=== PATIENT | female | born 1945 | race Caucasian/White ===

== ENCOUNTER 2017-04-08 19:48 | Inpatient (IN) | payer MEDICARE ==
[2017-04-08 21:00] LABS: #Basophils 0.1 thou/uL (0.0-0.2); #Eosinphils 0.2 thou/uL (0.0-0.7); #Lymphocytes 2.3 thou/uL (1.20-3.40); #Monocytes 1.7 thou/uL (0.11-0.59); #Neutrophils 13.5 thou/uL (1.40-6.50); %Basophils 0.3 % (0.0-1.0); %Eosinophils 1.3 % (0.0-10.0); %Lymphocytes 12.7 % (21.0-51.0); %Monocytes 9.5 % (0.0-10.0); Hematocrit 42.2 % (36.0-47.0); Mean Platelet Volume 9.5 fL (7.4-10.4); Red Blood Cell (RBC) Count 4.55 mill/uL (4.20-5.40); White Blood Cell (WBC) Count 17.7 thou/uL (4.8-10.8)
[2017-04-08 21:01] LABS: Bilirubin Negative (Negative); Blood, Urine Small (Negative); Glucose, Urine (Dipstick) Negative (Negative); Ketone, Urine Negative (Negative); Nitrite Positive (Negative); Protein, Urine (Dipstick) 30 mg/dL (Neg-Trace)
[2017-04-08 21:03] LABS: Bacteria/HPF 4+ HPF (None Seen); Hyaline Casts/LPF 0-3 HYALINE CAST LPF (0-3 Hyaline); Squamous Epithelial None Seen HPF (0-3)
[2017-04-08 21:06] LABS: Lactic Acid - Sepsis 2.9 mmol/L (0.5-2.2)
[2017-04-08 21:20] LABS: ALT (SGPT) 51 U/L (8-55); AST (SGOT) 40 U/L (5-34); Alkaline Phosphatase 212 U/L (40-150); Anion Gap 18 mmol/L (10-20); BUN (Urea Nitrogen) 31 mg/dL (9.8-20.1); Bilirubin, Total 0.5 mg/dL (0.2-1.2); Calc. Creatinine Clearance 0 mL/min (70-130); Calcium 9.3 mg/dL (7.8-10.44); Carbon Dioxide 23 mmol/L (23-31); Chloride 99 mmol/L (98-107); Estimated GFR-MDRD 54; Globulin 4.7 g/dL (2.4-3.5); Protein, Total 7.8 g/dL (6.0-8.3)
--- NOTE | 2017-04-08 21:27 | RAD ---
PORTABLE CHEST: Date: 04-08-17 Provided Clinical History: Altered mental status. FINDINGS: Comparison is made with the study dated 03-03-15. Cardiomediastinal silhouette is unchanged in appearance. No focal consolidation, pleural fluid or pne umothorax apparent. IMPRESSION: No evidence for an acute cardiopulmonary process. POS: [facility]
[2017-04-08 21:29] LABS: Troponin I Less than 0.010 ng/mL (< 0.028)
[2017-04-08] MEDS ORDERED: Piperacillin/Tazobactam 4.5 GM in Sodium Chloride 0.9% 100 ML IVPB SCH (21:45)
[2017-04-08] MEDS ORDERED: Azithromycin 500 MG in Sodium Chloride 0.9% 250 ML 250 ML IVPB SCH ×2 (21:45→23:59)
[2017-04-08 23:22] VITALS: BMI 39.3
[2017-04-08] MEDS ORDERED: Ondansetron ODT 4 MG TAB SL PRN (23:32)
[2017-04-08] MEDS ORDERED: Ondansetron HCl/PF 4 MG/2 ML Vial IVP PRN (23:32)
[2017-04-08] MEDS ORDERED: Acetaminophen 325 MG TAB PO PRN ×2 (23:32→23:50)
[2017-04-08] MEDS ORDERED: Dextrose 5% in Water 1,000 ML IV PRN (23:50)
[2017-04-08] MEDS ORDERED: Dextrose 50% Abboject 50 ML SYRINGE SLOW IVP PRN (23:50)
[2017-04-09] MEDS: Sodium Chloride 0.9% 1,000 ML IV SCH ×4 (00:12→17:39)
[2017-04-09] MEDS: cefTRIAXone\\ROCEPHIN 2 GM in Sodium Chloride 0.9% 100 ML IVPB SCH (00:12)
[2017-04-09 00:15] LABS: Amphetamine Detected (NotDetected); Methadone Not Detected (NotDetected); Methamphetamine Detected (NotDetected)
--- NOTE | 2017-04-09 04:44 | HP-2 ---
DATE AND TIME OF SERVICE: 04/08/2017 at 2300 hours. CODE STATUS: FULL CODE. PRIMARY CARE PHYSICIAN: Zak Segovia M.D. ATTENDING: Miguel Wheatley M.D. RESIDENT: Ricky Pierson M.D. HISTORIAN: Patient. CHIEF COMPLAINT: Hyperglycemia. HISTORY OF PRESENT ILLNESS: Lorie Montalvo is a 71-year-old female with past medical history of type 2 diabetes and peripheral artery disease who presents after having episode of hyperglycemia. The da y before presenting to the ER, her blood sugar at home was 600 yesterday and the patient states that she took 4 tabs of her glipizide, unknown dose. The patient's daughter convinced the patient to come to the ER because of the blood sugars. The patient's daughter told the nurse that the patient seeme d confused and different than normal. The patient normally takes a regular insulin, but has not take n it in over a month, because she ran out of medication. The patient admits to not taking very good care of herself. States that she has not been taking insulin because she is out and that she has bee n eating and really unhealthy. The patient's only symptoms have been dysuria and polyuria. She was asymptomatic during the hyperglycemic episode. The patient denies any other symptoms with the except ion of seasonal allergy symptoms. PAST MEDICAL HISTORY: 1. Type 2 diabetes. 2. Peripheral artery disease. PAST SURGICAL HISTORY: 1. section x3. 2. Hysterectomy. 3. Appendectomy. ALLERGIES: No known drug allergies. MEDICATIONS: Unable to confirm the patient's home medication list, patient's last admission was in 2 015. The patient is not a very good great historian and was unable to tell me what her medications w ere. We will attempt to get medication reconciliation. FAMILY HISTORY: None. SOCIAL HISTORY: The patient states she smokes 1/3 of a cigarette per day. Does not drink alcohol an d admits to using friend's Adderall recently. She lives at home. She states that she used to abuse all kinds of drugs including IV drugs. She states that the last time she has used any of these drugs was in 2010. REVIEW OF SYSTEMS: General, eyes, ENT, respiratory, CV, GI, , skin, musculoskeletal, neuro, and ps ych all reviewed and were negative unless otherwise stated in the HPI, only positives were dysuria, p olyuria, nasal congestion, and rhinorrhea. PHYSICAL EXAMINATION: VITAL SIGNS: Blood pressure 121/64, pulse 101, respiratory rate 24, T-max 99.6, pulse ox 96% on room air. Current weight 115 kilograms. GENERAL: The patient is alert and oriented x3 in no acute distress, morbidly obese, and appropriatel y interactive. EYES: Pupils equal, round, reactive to light and accommodation. Extraocular muscles intact. Conjun ctiva within normal limits. ENT: Tympanic membranes pearly gonzalez without erythema or bulging. Nasal mucosa and oropharynx within normal limits. NECK: Supple, without lymphadenopathy or thyromegaly. CARDIOVASCULAR: Regular rate and rhythm, very soft 2/6 systolic murmur heard over left parasternal b order. No gallops. RESPIRATORY: Normal effort, no retractions. LUNGS: Clear to auscultation bilaterally. SKIN: Warm and dry without cyanosis or lesions. ABDOMEN: Soft, nontender. Bowel sounds x4. No masses or distention. EXTREMITIES: No clubbing, cyanosis or edema. MUSCULOSKELETAL: Structure and tone within normal limits. Full range of motion. NEUROLOGIC: No focal deficits. Sensation within normal limits. PSYCHIATRIC: Normal mood and affect. However, patient was tangential throughout the conversation. LABORATORY DATA: White blood cell count 17.7, 76% neutrophils, hemoglobin 13.6, hematocrit 42.2, victorino telets 232. Sodium 135, potassium 4.6, chloride 99, carbon dioxide 23, BUN 31, creatinine 1.02, gluc ose 125, calcium 9.3, total protein 7.8, albumin 3.1, total bilirubin 0.5, AST 40, ALT 51, alkaline p hosphatase 212, lactic acid 2.8, CK-MB 22. Troponin I less than 0.01. UA significant for small bloo d, 30 protein, large leukocyte esterase, positive nitrite, 7 to 10 red blood cell, greater than 50 wh ite blood cell, 4+ bacteria. Chest x-ray showed no acute cardiopulmonary process. ASSESSMENT AND PLAN: A 71-year-old female with positive urinalysis, tachycardia, elevated lactate an d elevated white blood cell count. 1. Urosepsis. Admit to medical. Blood and urine cultures pending. The patient received azithromyc in and Zosyn in the ER. We will start Rocephin and recheck a lactate. The patient received 1 liter of normal saline bolus in the ER. We will start maintenance IV fluids normal saline at 155 mL an sarah r. 2. Type 2 diabetes mellitus. The patient has been noncompliant with medications. We will restart p revious home dose of insulin and add sliding scale insulin. We will continue doing q.4 hour Accu-Roxane ks initially and then switched to Accu-Cheks a.c. and at bedtime. Once we had confirmed, the patient will not become hypoglycemic. 3. History of IV drug use. Soft systolic murmur heard at the left sternal border. Last admitted IV drug use was in 2010. We will check a UDS, likely not the cause of sepsis, but we will review recor ds for any echos in the past. We will consider testing for hepatitis C, hepatitis B, HIV, and syphil is. 4. Lactic acidosis. Lactate 2.9. We will recheck after the patient was received fluid boluses, lik tanesha secondary to #1. 5. Activity: Ad sofya. 6. Deep venous thrombosis prophylaxis, sequential compression devices. 7. Code status: FULL. DISPOSITION AND LENGTH OF HOSPITAL STAY: 2 days. Symptomatic medications will be provided. History and physical exam as well as management were discussed with Dr. Wheatley.
[2017-04-09 05:54] LABS: ALT (SGPT) 61 U/L (8-55); AST (SGOT) 57 U/L (5-34); Alkaline Phosphatase 199 U/L (40-150); Anion Gap 12 mmol/L (10-20); BUN (Urea Nitrogen) 28 mg/dL (9.8-20.1); Bilirubin, Total 0.3 mg/dL (0.2-1.2); Calc. Creatinine Clearance 74 mL/min (70-130); Calcium 8.8 mg/dL (7.8-10.44); Carbon Dioxide 24 mmol/L (23-31); Chloride 103 mmol/L (98-107); Estimated GFR-MDRD 49; Globulin 3.8 g/dL (2.4-3.5); Protein, Total 6.5 g/dL (6.0-8.3)
[2017-04-09 05:59] LABS: Hemoglobin A1c 9.8 % (4.0-6.0)
[2017-04-09 06:43] LABS: Band 1 % (5-11); Hematocrit 38.7 % (36.0-47.0); Mean Platelet Volume 10.2 fL (7.4-10.4); Neutrophil 70 % (42-75); Reactive Lymphocytes 1 % (0-10); Red Blood Cell (RBC) Count 4.12 mill/uL (4.20-5.40); White Blood Cell (WBC) Count 16.4 thou/uL (4.8-10.8)
[2017-04-09] MEDS: Insulin Regular 300 UNITS/3 ML VIAL SC PRN ×4 (06:45→20:48)
[2017-04-09] MEDS ORDERED: FLU VACC TS2017-18 (>65YR) 0.5 ML SYRINGE IM ONE (09:00)
--- NOTE | 2017-04-09 10:01 | PDOC.FM ---
- Subjective Subjective: Patient reports that she has symptomatically improved. She is still having some dysuria, increased frequency, and suprapubic pain. She denies any fevers or chills. - Objective MAR Reviewed: Yes Vital Signs & Weight: Vital Signs (12 hours) Temp Pulse Resp BP Pulse Ox 04/09/17 07:49 98.8 F 91 20 131/72 91 L 04/09/17 04:00 98.1 F 98 20 134/76 94 L 04/08/17 23:50 98.6 F 97 20 96 I&O: 04/08/17 04/09/17 04/10/17 06:59 06:59 06:59 Intake Total 1000 Balance 1000 Result Diagrams: 04/09/17 05:17 04/09/17 05:25 <Enid Che - Last Filed: 04/09/17 11:28> - Objective Vital Signs & Weight: Vital Signs (12 hours) Temp Pulse Resp BP Pulse Ox 04/09/17 11:38 92 L 04/09/17 11:29 100.0 F H 96 20 141/68 H 91 L 04/09/17 08:00 98.8 F 91 20 91 L 04/09/17 07:49 98.8 F 91 20 131/72 91 L 04/09/17 04:00 98.1 F 98 20 134/76 94 L I&O: 04/08/17 04/09/17 04/10/17 06:59 06:59 06:59 Intake Total 1000 240 Output Total 600 Balance 1000 -360 Result Diagrams: 04/09/17 05:17 04/09/17 05:25 <Misha Bergeron - Last Filed: 04/09/17 12:50> Phys Exam - Physical Examination Constitutional: NAD HEENT: moist MMs Respiratory: no wheezing, no rales, no rhonchi, clear to auscultation bilateral Cardiovascular: RRR 2/6 systolic murmur Gastrointestinal: soft, no distention, positive bowel sounds tender to palpation in suprapubic region, no rebound or guarding Musculoskeletal: pulses present, edema present (1+ pitting edema) Neurological: non-focal, moves all 4 limbs Psychiatric: normal affect, A&O x 3 Deviation from normal: bilateral stasis dermatitis <Enid Che - Last Filed: 04/09/17 11:28> Dx/Plan (1) Sepsis secondary to UTI Code(s): A41.9 - SEPSIS, UNSPECIFIED ORGANISM; N39.0 - URINARY TRACT INFECTION, SITE NOT SPECIFIED Status: Acute Plan: Patient had elevated WBC, tachycardia, tachypnea, and elevated lactic acid with signs of infection on urinalysis. UTI was likely 2/2 uncontrolled DMII -Rocephin day 2, will likely transition to PO abx tomorrow -NS @ 155 mL/hr -Urine Cx/sensitivities (2) Lactic acid blood increased Code(s): R79.89 - OTHER SPECIFIED ABNORMAL FINDINGS OF BLOOD CHEMISTRY Status : Resolved Plan: Lactic acid was 2.9 initially, has since downtrended to 1.5 s/p fluid resuscitation. (3) History of intravenous drug abuse Code(s): Z87.898 - PERSONAL HISTORY OF OTHER SPECIFIED CONDITIONS Status: Acute Plan: Patient has history of IV drug abuse. She reports no recent IV drug use. HIV, Hep B, syphilis negative -Will check Hep C Will drapery counselor (4) Methamphetamine abuse Code(s): F15.10 - OTHER STIMULANT ABUSE, UNCOMPLICATED Status: Acute Plan: Patient positive for Meth on UDS -Will drapery counselor and encourage cessation (5) PAD (peripheral artery disease) Code(s): I73.9 - PERIPHERAL VASCULAR DISEASE, UNSPECIFIED Status: Acute Plan: Do not know medication list currently. Daughter will bring today. Will continue home medications when she brings it. (6) Stasis dermatitis of both legs Code(s): I83.11 - VARICOSE VEINS OF RIGHT LOWER EXTREMITY WITH INFLAMMATION; I83.12 - VARICOSE VEINS OF LEFT LOWER EXTREMITY WITH INFLAMMATION Status: Acute Plan: Patient has stasis dermatitis with no open wounds. Will monitor. When daughter brings medication list will review. (7) Type 2 diabetes mellitus Status: Chronic QualifierTitle: Diabetes mellitus complication status: with skin complications Diabetes mellitus complication detail: with dermatitis Diabetes mellitus terminal gauger supervisor insulin use: without terminal gauger supervisor use Qualified Code( s): E11.620 - Type 2 diabetes mellitus with diabetic dermatitis Plan: Uncontrolled Type 2 DM, A1c 9.8% Do not have current medication list yet, will get from daughter today and will continue home medications -SSI -Accuchecks ACHS -Diabetic Diet -Counseling <Enid Che - Last Filed: 04/09/17 11:28> Attending Addendum - Attending Addendum I personally evaluated the patient and discussed the management with Dr. Che. I agree with the History, Examination, Assessment and Plan documented above with any addition or exceptions noted below. Patient reports improvement in symptoms today. She has elevated white count and evidence on UA for UTI. She met sepsis criteria on admission. She has had blood and urine cultures obtained, and has been adequately fluid resuscitated. Continue Rocephin and await culture results. She is methamphetamine positive on UDS with history of such and will need counselling. We will also be adjusting DM regimen to obtain better control of blood sugars to help prevent future infections and complications of that disease. <Misha Bergeron - Last Filed: 04/09/17 12:50>
[2017-04-09] MEDS ORDERED: Albuterol Sulfate 2.5 mg/3 ml Neb NEB PRN (17:32)
[2017-04-09] MEDS: Potassium Chloride 10 MEQ TAB PO SCH (19:57)
[2017-04-09] MEDS: Gabapentin 400 MG CAP PO SCH (19:57)
[2017-04-09] MEDS: Furosemide 40 MG TAB PO SCH (19:58)
[2017-04-09] MEDS ORDERED: Atorvastatin Calcium 40 MG TAB PO SCH (21:00)
[2017-04-10] MEDS: cefTRIAXone\\ROCEPHIN 2 GM in Sodium Chloride 0.9% 100 ML IVPB SCH (00:49)
[2017-04-10] MEDS: Sodium Chloride 0.9% 1,000 ML IV SCH ×3 (00:50→18:29)
[2017-04-10] MEDS ORDERED: Levothyroxine Sodium 88 MCG TAB PO SCH (06:00)
[2017-04-10] MEDS ORDERED: glipiZIDE 10 MG TAB PO SCH (07:30)
[2017-04-10 07:33] LABS: #Basophils 0.1 thou/uL (0.0-0.2); #Eosinphils 0.4 thou/uL (0.0-0.7); #Lymphocytes 1.7 thou/uL (1.20-3.40); #Monocytes 1.3 thou/uL (0.11-0.59); #Neutrophils 9.9 thou/uL (1.40-6.50); %Basophils 0.6 % (0.0-1.0); Hematocrit 37.8 % (36.0-47.0); Mean Platelet Volume 8.9 fL (7.4-10.4); Red Blood Cell (RBC) Count 3.97 mill/uL (4.20-5.40); White Blood Cell (WBC) Count 13.5 thou/uL (4.8-10.8)
[2017-04-10 07:53] LABS: Anion Gap 11 mmol/L (10-20); BUN (Urea Nitrogen) 18 mg/dL (9.8-20.1); Calc. Creatinine Clearance 88 mL/min (70-130); Calcium 8.6 mg/dL (7.8-10.44); Carbon Dioxide 29 mmol/L (23-31); Chloride 102 mmol/L (98-107); Estimated GFR-MDRD 60
[2017-04-10] MEDS: metFORMIN 500 MG TAB PO SCH ×2 (08:12→17:00)
[2017-04-10] MEDS: Furosemide 40 MG TAB PO SCH (08:12)
[2017-04-10] MEDS: Potassium Chloride 10 MEQ TAB PO SCH (08:13)
--- NOTE | 2017-04-10 08:26 | PDOC.FM ---
- Subjective Subjective: Patient doing a little better this AM. She is still having some suprapubic pain and some dysuria, but she reports that it has improved. She is having some constipation as well, but is wanting to try prune juice before she does any medications. Denies fever/chills - Objective MAR Reviewed: Yes Vital Signs & Weight: Vital Signs (12 hours) Temp Pulse Resp BP Pulse Ox 04/10/17 04:00 98.7 F 104 H 18 123/79 96 Weight Admit Weight 97.522 kg Weight 97.522 kg I&O: 04/09/17 04/10/17 04/11/17 06:59 06:59 06:59 Intake Total 1000 4285 Output Total 1600 Balance 1000 2685 Result Diagrams: 04/10/17 07:23 04/10/17 07:23 <Enid Che - Last Filed: 04/10/17 08:25> - Objective Vital Signs & Weight: Vital Signs (12 hours) Temp Pulse Resp BP Pulse Ox 04/10/17 08:00 98.6 F 96 20 125/76 98 04/10/17 04:00 98.7 F 104 H 18 123/79 96 Weight Admit Weight 97.522 kg Weight 97.522 kg I&O: 04/09/17 04/10/17 04/11/17 06:59 06:59 06:59 Intake Total 1000 4285 Output Total 1600 Balance 1000 2685 Result Diagrams: 04/10/17 07:23 04/10/17 07:23 <Misha Bergeron - Last Filed: 04/10/17 11:57> Phys Exam - Physical Examination Constitutional: NAD HEENT: moist MMs Respiratory: no wheezing, no rales, clear to auscultation bilateral Cardiovascular: RRR, no rub 3/6 systolic murmur Gastrointestinal: soft, no distention, positive bowel sounds tender to palpation in suprapubic region Musculoskeletal: pulses present, edema present (1+ pitting edema) Neurological: non-focal, moves all 4 limbs Psychiatric: normal affect, A&O x 3 Deviation from normal: bilateral chronic erythematous changes with no open wounds on legs <Enid Che - Last Filed: 04/10/17 08:25> Dx/Plan (1) Sepsis secondary to UTI Code(s): A41.9 - SEPSIS, UNSPECIFIED ORGANISM; N39.0 - URINARY TRACT INFECTION, SITE NOT SPECIFIED Status: Acute Plan: Patient had elevated WBC, tachycardia, tachypnea, and elevated lactic acid with signs of infection on urinalysis. UTI was likely 2/2 uncontrolled DMII - Urine cx grew E. coli resistant to Bactrim. -Rocephin day 3, will transition to PO cipro today as E. coli is sensitive to this -NS @ 155 mL/hr WBC count downtrending (2) Lactic acid blood increased Code(s): R79.89 - OTHER SPECIFIED ABNORMAL FINDINGS OF BLOOD CHEMISTRY Status : Resolved Plan: Lactic acid was 2.9 initially, has since downtrended to 1.5 s/p fluid resuscitation. (3) History of intravenous drug abuse Code(s): Z87.898 - PERSONAL HISTORY OF OTHER SPECIFIED CONDITIONS Status: Acute Plan: Patient has history of IV drug abuse. She reports no recent IV drug use. HIV, Hep B, Hep C, syphilis negative Will family life counselor (4) Methamphetamine abuse Code(s): F15.10 - OTHER STIMULANT ABUSE, UNCOMPLICATED Status: Acute Plan: Patient positive for Meth on UDS -Will family life counselor and encourage cessation (5) PAD (peripheral artery disease) Code(s): I73.9 - PERIPHERAL VASCULAR DISEASE, UNSPECIFIED Status: Acute Plan: Continue home meds (6) Stasis dermatitis of both legs Code(s): I83.11 - VARICOSE VEINS OF RIGHT LOWER EXTREMITY WITH INFLAMMATION; I83.12 - VARICOSE VEINS OF LEFT LOWER EXTREMITY WITH INFLAMMATION Status: Acute Plan: Patient has stasis dermatitis with no open wounds. Will monitor. Cont home meds (7) Type 2 diabetes mellitus Status: Chronic QualifierTitle: Diabetes mellitus complication status: with skin complications Diabetes mellitus complication detail: with dermatitis Diabetes mellitus half-way insulin use: without half-way use Qualified Code( s): E11.620 - Type 2 diabetes mellitus with diabetic dermatitis Plan: Uncontrolled Type 2 DM, A1c 9.8% Cont home meds -SSI -Accuchecks ACHS -Diabetic Diet -Counseling <Enid Che - Last Filed: 04/10/17 08:25> Attending Addendum - Attending Addendum I personally evaluated the patient and discussed the management with Dr. Che. I agree with the History, Examination, Assessment and Plan documented above with any addition or exceptions noted below. Patient reports improvement this morning. She has been afebrile and WBC has downtrended. Ucx growing E. coli with appropriate sensitivities. Patient with be changed to PO antibiotics today and discharged home. <Misha Bergeron - Last Filed: 04/10/17 11:57>
[2017-04-10] MEDS ORDERED: Aspirin 81 mg Enteric Coated Tablet PO SCH (09:00)
[2017-04-10 09:40] VITALS: BP 125/76; TEMP 98.6
[2017-04-10] MEDS ORDERED: Ciprofloxacin 500 MG TAB PO SCH (11:45)
[2017-04-10] MEDS: Insulin Regular 300 UNITS/3 ML VIAL SC PRN (12:30)
--- NOTE | 2017-04-11 13:39 | DIS-2 ---
DATE OF ADMISSION: 04/08/2017 DATE OF DISCHARGE: 04/10/2017 ADMITTING RESIDENT: Ricky Pierson MD DISCHARGE RESIDENT: Enid Che MD ADMITTING ATTENDING: Miguel Wheatley M.D. DISCHARGE ATTENDING: Misha Bergeron MD CONSULTATIONS: None. PROCEDURES: None. IMAGING: Chest x-ray showed no evidence of acute cardiopulmonary process. PRIMARY DIAGNOSES: 1. Sepsis secondary to urinary tract infection. 2. Acute complicated urinary tract infection secondary to Escherichia coli. 3. Methamphetamine abuse. 4. Leukocytosis. 5. Elevated lactic acid. SECONDARY DIAGNOSES: 1. Type 2 diabetes. 2. History of IV drug use. 3. Peripheral artery disease. 4. Stasis dermatitis. DISCHARGE MEDICATIONS: 1. Albuterol sulfate 2.5 mg nebulized q.2 h. p.r.n. shortness of breath or wheezing. 2. Aspirin 81 mg p.o. daily. 3. Atorvastatin 40 mg p.o. at bedtime. 4. Bacitracin ointment 30 grams to 1 application topical b.i.d. p.r.n. inflammation. 5. Blood sugar test strips 1 each before meals and at bedtime. 6. Symbicort 160/4.5 mg 2 puffs inhaled b.i.d. 7. Ciprofloxacin 500 mg p.o. b.i.d. for 7 days. 8. Advair Diskus 500/50 one inhaled b.i.d. 9. Lasix 40 mg p.o. b.i.d. 10. Gabapentin 400 mg p.o. at bedtime. 11. Glipizide 10 mg p.o. daily. 12. DuoNeb 3 mL nebulized q.6 h. 13. Levemir 35 units subcu q.p.m. 14. Synthroid 88 mcg p.o. daily. 15. Metformin 1000 mg p.o. b.i.d. with meals. 16. Multivitamin 1 tablet p.o. daily. 17. Potassium chloride 10 mEq p.o. b.i.d. DISCONTINUED MEDICATIONS: None. HISTORY OF PRESENT ILLNESS AND HOSPITAL COURSE: This is a 71-year-old female with past medical histo ry of diabetes type 2 and IV drug abuse who presented to the emergency department after checking her blood sugar and realizing it was 600 and taking four tablets of her glipizide. The patient had seeme d confused to the daughter and the patient has not been taking very good care of herself. She was fo und to be in sepsis secondary to a urinary tract infection that grew out E. coli resistant to Bactrim and ampicillin. The patient initially had tachycardia, tachypnea and an elevated white count to 17. 7 with an elevated lactic acid to 2.9. The patient's white count trended down to 13.5 over the next 2 days and her lactic acid down trended to 1.5 over the next day. The patient initially had a urine with positive nitrites, large leukocyte esterase, greater than 50 white cells and 4+ bacteria. The p atient was treated with Rocephin and fluids initially and then on her last day was transitioned to Ci pro, which bacteria was sensitive too. The patient symptomatically improved. She was still having a little bit of suprapubic pain and some dysuria, but overall says that she was improving from a urina ry tract infection standpoint. She was found to have a hemoglobin A1c of 9.8. Blood sugars in the 1 00-200 throughout her stay. The dietitian was consulted. Patient was able to discuss diet control a nd the patient was counseled on the importance of good follow up with her physician as well as the im portance of medication compliance. The patient also tested positive for methamphetamines on urine dr hector screen. She denied recent drug use, although she reported a distant history of drug abuse, but re ported being 30+ years sober. The patient was counseled on the importance of cessation. DISPOSITION: Stable. DISCHARGE INSTRUCTIONS: 1. Location: Home. 2. Diet: Diabetic diet. 3. Activity: As tolerated. 4. Follow up with Dr. Segovia in 7-10 days.
== END 2017-04-10 19:35 | disposition home or self-care (01) | DRG 871 ==
LOC: ERS 19:48 → T4-A 21:30
PROVIDERS: ADMIT Family Medicine; ATTEND Family Medicine
DX: A41.9 Sepsis, unspecified organism (principal); E11.10 Type 2 diabetes mellitus with ketoacidosis without coma; E87.2 Acidosis; N39.0 Urinary tract infection, site not specified; E11.65 Type 2 diabetes mellitus with hyperglycemia; G47.30 Sleep apnea, unspecified; I25.10 Atherosclerotic heart disease of native coronary artery without angina pectoris; I10 Essential (primary) hypertension; F15.10 Other stimulant abuse, uncomplicated; I73.9 Peripheral vascular disease, unspecified; I83.11 Varicose veins of right lower extremity with inflammation; I83.12 Varicose veins of left lower extremity with inflammation; Z91.19 Patient's noncompliance with other medical treatment and regimen
CPT/HCPCS: 36415; 36416; 71010; 80048; 80053; 80306; 81003; 81015; 82553; 82570; 83036; 83605; 83880; 84300; 84484; 85025; 86706; 86780; 86803; 87040; 87077; 87086; 87186; 87389; 93005; 96365; A4216; J0456; J0696; J1815; J2543; J7050